=== PATIENT | female | born 1955 | race Caucasian/White ===

== ENCOUNTER 2019-08-07 06:32 | Emergency (ER) | payer BC ==
--- NOTE | 2019-08-07 07:29 | EDM.PDOC ---
ED HPI GENERAL MEDICAL PROBLEM - General Chief Complaint: Abdominal Pain Stated Complaint: CONSTIPATION Time Seen by Provider: 08/07/19 06:59 Source of Information: Reports: Patient, RN Notes Reviewed - History of Present Illness INITIAL COMMENTS - FREE TEXT/NARRATIVE: 64-year-old females been having abdominal pain off and on for the past couple of weeks. The pain has worsened during the night and this morning. Having primarily lower achy pain with occasional cramping. His been constipated, even more so than usual. She had a very small BM this morning but was not able to get much out. He has nausea this morning but no vomiting. She has had some "chills" but no obvious fever. No chest pain or difficulty breathing. She has tried some MiraLAX but so far that hasn't helped much. Abdomen Pain Score (Numeric/FACES): 7 - Related Data Allergies Allergy/AdvReac Type Severity Reaction Status Date / Time aspirin Allergy Vomiting Verified 08/07/19 06:43 morphine Allergy Vomiting Verified 08/07/19 06:43 NSAIDS (Non-Steroidal Allergy Vomiting Verified 08/07/19 06:43 Anti-Inflamma Sulfa (Sulfonamide Allergy Vomiting Verified 08/07/19 06:43 Antibiotics) Home Meds: Home Meds Escitalopram Oxalate [Lexapro] 5 mg PO BEDTIME 08/07/19 [History] Fluticasone Propionate [Flovent HFA 110 MCG] 2 puff IN BEDTIME 08/07/19 [History ] LORazepam 0.5 mg PO TID PRN 08/07/19 [History] Past Medical History Gastrointestinal History: Reports: Chronic Constipation Psychiatric History: Reports: Anxiety, Depression Oncologic (Cancer) History: Reports: Non-Hodgkin's Lymphoma Social & Family History - Tobacco Use Smoking Status *Q: Never Smoker Second Hand Smoke Exposure: No - Caffeine Use Caffeine Use: Reports: None - Recreational Drug Use Recreational Drug Use: No ED ROS GENERAL - Review of Systems Review Of Systems: See Below Constitutional: Denies: Fever HEENT: Reports: No Symptoms Respiratory: Denies: Shortness of Breath, Pleuritic Chest Pain Cardiovascular: Denies: Chest Pain GI/Abdominal: Reports: Abdominal Pain, Constipation, Nausea. Denies: Diarrhea, Hematochezia, Melena, Vomiting Musculoskeletal: Reports: Back Pain Skin: Reports: No Symptoms (Mild) Neurological: Reports: Dizziness (Mild) ED EXAM, GI/ABD - Physical Exam Exam: See Below General Appearance: Alert, Mild Distress Eyes: Bilateral: Normal Appearance Throat/Mouth: Normal Inspection, Normal Oropharynx Head: No: Facial Swelling Neck: Supple Respiratory/Chest: No Respiratory Distress, Lungs Clear, Normal Breath Sounds Cardiovascular: Regular Rate, Rhythm GI/Abdominal Exam: Soft, Tender (Mild diffuse tenderness upper and lower abdomen ). No: Guarding, Rebound Back Exam: No: CVA Tenderness (L), CVA Tenderness (R) Extremities: Normal Inspection, Normal Range of Motion Neurological: Alert, Oriented, No Motor/Sensory Deficits Skin Exam: Warm, Dry, Normal Color Course - Vital Signs Last Recorded V/S: Last Vital Signs Temp 97.4 F 08/07/19 10:20 Pulse 64 08/07/19 10:20 Resp 14 08/07/19 10:20 BP 132/68 08/07/19 10:20 Pulse Ox 97 08/07/19 10:20 - Orders/Labs/Meds Labs: Laboratory Tests 08/07/19 08/07/19 08/07/19 Range/Units 07:18 07:18 07:18 WBC 11.71 H (3.98-10.04) K/mm3 RBC 5.03 (3.98-5.22) M/mm3 Hgb 15.0 (11.2-15.7) gm/dl Hct 44.8 (34.1-44.9) % MCV 89.1 (79.4-94.8) fl MCH 29.8 (25.6-32.2) pg MCHC 33.5 (32.2-35.5) g/dl RDW Std Deviation 43.4 (36.4-46.3) fL Plt Count 481 H (182-369) K/mm3 MPV 8.2 L (9.4-12.3) fl Neut % (Auto) 65.6 (34.0-71.1) % Lymph % (Auto) 21.2 (19.3-51.7) % [place] % (Auto) 11.1 (4.7-12.5) % Eos % (Auto) 1.3 (0.7-5.8) Baso % (Auto) 0.5 (0.1-1.2) % Neut # (Auto) 7.68 H (1.56-6.13) K/mm3 Lymph # (Auto) 2.48 (1.18-3.74) K/mm3 [place] # (Auto) 1.30 H (0.24-0.36) K/mm3 Eos # (Auto) 0.15 (0.04-0.36) K/mm3 Baso # (Auto) 0.06 (0.01-0.08) K/mm3 Manual Slide Review Abnormal smear Sodium 128 L (136-145) mEq/L Potassium 3.7 (3.5-5.1) mEq/L Chloride 94 L (98-107) mEq/L Carbon Dioxide 24 (21-32) mEq/L Anion Gap 13.7 (5-15) BUN 6 L (7-18) mg/dL Creatinine 0.5 L (0.55-1.02) mg/dL Est Cr Clr Drug Dosing 103.08 mL/min Estimated GFR (MDRD) > 60 (>60) mL/min BUN/Creatinine Ratio 12.0 L (14-18) Glucose 117 H (80-115) mg/dL Calcium 9.0 (8.5-10.1) mg/dL Total Bilirubin 0.4 (0.2-1.0) mg/dL AST 17 (15-37) U/L ALT 26 (14-59) U/L Alkaline Phosphatase 62 (46-116) U/L C-Reactive Protein < 0.2 (<1.0) mg/dL Total Protein 7.3 (6.4-8.2) g/dl Albumin 3.5 (3.4-5.0) g/dl Globulin 3.8 gm/dL Albumin/Globulin Ratio 0.9 L (1-2) TSH 3rd Generation (0.358-3.74) uIU/mL 08/07/19 Range/Units 07:18 WBC (3.98-10.04) K/mm3 RBC (3.98-5.22) M/mm3 Hgb (11.2-15.7) gm/dl Hct (34.1-44.9) % MCV (79.4-94.8) fl MCH (25.6-32.2) pg MCHC (32.2-35.5) g/dl RDW Std Deviation (36.4-46.3) fL Plt Count (182-369) K/mm3 MPV (9.4-12.3) fl Neut % (Auto) (34.0-71.1) % Lymph % (Auto) (19.3-51.7) % [place] % (Auto) (4.7-12.5) % Eos % (Auto) (0.7-5.8) Baso % (Auto) (0.1-1.2) % Neut # (Auto) (1.56-6.13) K/mm3 Lymph # (Auto) (1.18-3.74) K/mm3 [place] # (Auto) (0.24-0.36) K/mm3 Eos # (Auto) (0.04-0.36) K/mm3 Baso # (Auto) (0.01-0.08) K/mm3 Manual Slide Review Sodium (136-145) mEq/L Potassium (3.5-5.1) mEq/L Chloride (98-107) mEq/L Carbon Dioxide (21-32) mEq/L Anion Gap (5-15) BUN (7-18) mg/dL Creatinine (0.55-1.02) mg/dL Est Cr Clr Drug Dosing mL/min Estimated GFR (MDRD) (>60) mL/min BUN/Creatinine Ratio (14-18) Glucose (80-115) mg/dL Calcium (8.5-10.1) mg/dL Total Bilirubin (0.2-1.0) mg/dL AST (15-37) U/L ALT (14-59) U/L Alkaline Phosphatase (46-116) U/L C-Reactive Protein (<1.0) mg/dL Total Protein (6.4-8.2) g/dl Albumin (3.4-5.0) g/dl Globulin gm/dL Albumin/Globulin Ratio (1-2) TSH 3rd Generation 1.284 (0.358-3.74) uIU/mL Meds: Medications Discontinued Medications Generic Name Dose Route Start Last Admin Trade Name Freq PRN Reason Stop Dose Admin Magnesium Citrate 296 ml 08/07/19 10:22 08/07/19 10:37 Citrate Of Magnesia PO 08/07/19 10:23 296 ml ONETIME ONE Administration Departure - Departure Time of Disposition: 09:47 Disposition: Home, Self-Care 01 Condition: Fair Clinical Impression: Hyponatremia Constipation Qualifiers: Constipation type: unspecified constipation type Qualified Code(s): K59.00 - Constipation, unspecified - Discharge Information Instructions: Hyponatremia, [id number], Constipation, Adult, [id number] Referrals: PCP,Not In Area [Primary Care Provider] - Forms: ED Department Discharge Additional Instructions: Drink plenty of water to maintain hydration, fiber diet, Colace stool softener once or twice daily, Metamucil for extra fiber once or twice daily, mag citrate which is a strong laxative, one half bottle this morning. If you do not have a BM within 4-6 hours than drink the remainder. In the future you can continue to use MiraLAX once or twice daily as needed. Your sodium level was somewhat low today, 128. As discussed add some extra salt with your meals. follow up with your regular medical provider in 3-5 days if not doing much better. Return to ED as needed if symptoms worsening in any way.
[2019-08-07] MEDS ORDERED: Magnesium Citrate Solution 296 ML Bottle PO ONE (10:22)
--- NOTE | 2019-08-08 13:42 | CR ---
Abdomen: Supine and upright views of the abdomen were obtained. Comparison: No prior abdominal imaging. Findings: Multiple surgical clips are seen within the pelvis and abdomen. Bowel gas pattern is normal. Calcification is seen within the pelvis which has the appearance of a phlebolith. No free air is identified. No soft tissue abnormality is seen. Bony structures appear within normal limits. Impression: 1. Multiple surgical clips. Nothing acute is seen on two-view abdominal x-ray. Diagnostic code #2
== END 2019-08-07 10:20 | disposition home or self-care (01) ==
LOC: JD.ED 06:32
DX: K59.00 Constipation, unspecified (principal); E87.1 Hypo-osmolality and hyponatremia; F32.9 Major depressive disorder, single episode, unspecified; F41.9 Anxiety disorder, unspecified; Z88.2 Allergy status to sulfonamides; Z88.5 Allergy status to narcotic agent; Z79.82 Long term (current) use of aspirin; Z88.6 Allergy status to analgesic agent; Z79.899 Other long term (current) drug therapy
CPT/HCPCS: 36415; 74019; 80053; 84443; 85025; 86140; 99284; A9270; 99282